=== PATIENT | female | born 1955 | race Caucasian/White ===

== ENCOUNTER → 2018-02-05 | Outpatient (CLI) | payer BC ==
--- NOTE | 2018-02-05 16:24 | US ---
EXAMINATION TYPE: US abdomen complete DATE OF EXAM: 02/05/2018 COMPARISON: NONE CLINICAL HISTORY: R10.9 Unspecified Abdominal Pain. Pt states generalized ABD pain x 3 weeks/ GB walter le 40+ yrs ago EXAM MEASUREMENTS: Liver Length: 13.9 cm CBD: 1.2 cm Spleen: 9.2 cm Right Kidney: 11.0 x 4.7 x 4.1 cm Left Kidney: 10.2 x 5.4 x 5.2 cm Pancreas: wnl, tail obscured by overlying bowel gas Liver: wnl Gallbladder: Surgically absent Evidence for sonographic Medel's sign: No CBD: dilated for post lauren Spleen: wnl Right Kidney: wnl, lower pole gassed out Left Kidney: wnl, lower pole gassed out Upper IVC: wnl Abd Aorta: wnl IMPRESSION: 1. Slight prominence of the common bile duct at 1.2 cm. Normal 0 cm in a postcholecystectomy patient.
== END ==
LOC: RADUSWWP 07:16
PROVIDERS: ATTEND Family Medicine
DX: R10.9 Unspecified abdominal pain (principal); R94.4 Abnormal results of kidney function studies
CPT/HCPCS: 36415; 76700; 82565; 84520

== ENCOUNTER → 2020-02-14 | Outpatient (CLI) | payer MEDICARE ==
--- NOTE | 2020-02-15 19:05 | ECHOF ---
Referral Reason:R07.9 chest pain MEASUREMENTS -------- HEIGHT: 170.2 cm WEIGHT: 101.2 kg BP: 130/80 RVIDd: 3.1 cm (< 3.3) IVSd: 1.1 cm (0.6 - 1.1) LVIDd: 4.3 cm (3.9 - 5.3) LVPWd: 1.2 cm (0.6 - 1.1) IVSs: 1.9 cm LVIDs: 3.1 cm LVPWs: 2.0 cm LA Diam: 4.1 cm (2.7 - 3.8) LAESV Index (A-L): 25.20 ml/m Ao Diam: 3.7 cm (2.0 - 3.7) AV Cusp: 2.7 cm (1.5 - 2.6) MV EXCURSION: 14.230 mm (> 18.000) MV EF SLOPE: 46 mm/s (70 - 150) EPSS: 0.8 cm MV E Ja: 0.50 m/s MV DecT: 407 ms MV A Ja: 0.59 m/s MV E/A Ratio: 0.84 RAP: 5.00 mmHg RVSP: 25.10 mmHg FINDINGS -------- Sinus rhythm. This was a technically good study. The left ventricular size is normal. There is borderline concentric left ventricular hypertrophy. Overall left ventricular systolic function is normal with, an EF between 60 - 65 %. The right ventricle is normal in size. Normal LA size by volume 22+/-6 ml/m2. The right atrium is normal in size. Aneurysmal Interatrial septum. Aortic valve is trileaflet and is mildly thickened. The mitral valve is normal. Mild tricuspid regurgitation present. Right ventricular systolic pressure is normal at < 35 mmHg. Trace/mild (physiologic) pulmonic regurgitation. The aortic root size is normal. Normal inferior vena cava with normal inspiratory collapse consistent with estimated right atrial pre ssure of 5 mmHg. There is no pericardial effusion. CONCLUSIONS -------- 1. The left ventricular size is normal. 2. There is borderline concentric left ventricular hypertrophy. 3. Overall left ventricular systolic function is normal with, an EF between 60 - 65 %. 4. Aneurysmal Interatrial septum. 5. Aortic valve is trileaflet and is mildly thickened. 6. Mild tricuspid regurgitation present. 7. Trace/mild (physiologic) pulmonic regurgitation. 8. There is no pericardial effusion. RECORDS TECHNICIAN: Adilene Cuellar RDCS
== END | disposition home or self-care (01) ==
LOC: RADECHMAIN 14:33
PROVIDERS: ATTEND Family Medicine
DX: I25.3 Aneurysm of heart (principal); I08.2 Rheumatic disorders of both aortic and tricuspid valves; I37.1 Nonrheumatic pulmonary valve insufficiency
CPT/HCPCS: 93306

== ENCOUNTER → 2021-01-29 | Outpatient (CLI) | payer MEDICARE ==
--- NOTE | 2021-02-11 10:56 | MM ---
Reason for exam: screening (asymptomatic). Last mammogram was performed 4 years and 9 months ago. History: Patient is postmenopausal and has history of high-risk lesion on a previous biopsy at age 59. Benign MG pre op needle loc RT of the right breast, February 21, 2015. High risk US biopsy breast VAD RT of the right breast, February 09, 2015. Took hormonal contraceptives for 10 years. Took estrogen for 4 years. Physical Findings: A clinical breast exam by your physician is recommended on an annual basis and results should be correlated with mammographic findings. MG 3D Screening Mammo W/Cad Bilateral CC and MLO view(s) were taken. Prior study comparison: September 22, 2019, mammogram, performed at [place]. August 25, 2018, mammogram, performed at [place]. May 07, 2016, bilateral MG diagnostic mammo w CAD [facility]. October 12, 2015, right breast MG diagnostic mammo RT w CAD. February 09, 2015, right breast MG diagnostic mammo RT wo CAD. The breast tissue is heterogeneously dense. This may lower the sensitivity of mammography. No significant changes when compared with prior studies. ASSESSMENT: Benign, BI-RAD 2 RECOMMENDATION: Routine screening mammogram of both breasts in 1 year.
== END | disposition home or self-care (01) ==
LOC: RADMAMWWP 09:20
PROVIDERS: ATTEND Family Medicine
DX: Z12.31 Encounter for screening mammogram for malignant neoplasm of breast (principal); Z78.0 Asymptomatic menopausal state
CPT/HCPCS: 77063; 77067

== ENCOUNTER → 2022-02-20 | Outpatient (CLI) | payer MEDICARE ==
--- NOTE | 2022-02-21 11:34 | MM ---
Reason for Exam: Screening (asymptomatic). Last mammogram was performed 1 year(s) and 1 month(s) ago. Patient History: Menarche at age 12. First Full-Term at age 16. Right ovary removed at age 44. Hysterectomy at age 44. Postmenopausal. Patient used Estrogen for 4 years. Patient used Hormonal Contraceptives for 10 years. 02/21/2015, Benign Core Biopsy on the right side. 02/09/2015, High risk Core Biopsy on the right side. Risk Values: Liza 5 year model risk: 1.7%. NCI Lifetime model risk: 5.5%. Prior Study Comparison: 08/25/2018 Screening Mammogram, [place]. 09/22/2019 Screening Mammogram, [place]. 01/29/2021 Bilateral Screening Mammogram, [facility]. Tissue Density: There are scattered fibroglandular densities. Findings: Analyzed By CAD. There is no suspicious group of microcalcifications or new suspicious mass in either breast. Overall Assessment: Negative, BI-RAD 1 Management: Screening Mammogram of both breasts in 1 year. 1. Patient should continue monthly self breast exams. 2. A clinical breast exam by your physician is recommended on an annual basis. 3. This exam should not preclude additional follow-up of suspicious palpable abnormalities. Electronically signed and approved by: Yenny Carroll M.D. Radiologist
== END | disposition home or self-care (01) ==
LOC: RADMAMWWP 13:55
PROVIDERS: ATTEND Family Medicine
DX: Z12.31 Encounter for screening mammogram for malignant neoplasm of breast (principal); Z78.0 Asymptomatic menopausal state; Z98.890 Other specified postprocedural states
CPT/HCPCS: 77063; 77067

== ENCOUNTER → 2022-09-29 | Outpatient (CLI) | payer MEDICARE ==
--- NOTE | 2022-09-29 07:46 | MR ---
EXAMINATION TYPE: MR shoulder RT wo con DATE OF EXAM: 09/29/2022 COMPARISON: None. HISTORY: Rt shoulder pain TECHNIQUE: Multiplanar, multisequence imaging of the right shoulder is performed without contrast. FINDINGS: Rotator Cuff: Increased signal distal supraspinatus and infraspinatus tendons. Mild generalized muscu lar atrophy Acromioclavicular Joint: Mild to moderate spurring and capsular hypertrophy. Loss of underlying fat p antony. Glenohumeral Joint: Severe narrowing with extensive subchondral cystic change. Bone on bone appearanc e is seen. Prominent small bony projection inferior medial humeral head. Heterogeneous diminished T1 and increased T2 signal. Large nonsimple joint effusion extending superiorly and over subdeltoid rashawn on. Labrum: The labrum appears grossly intact given limitation of non-arthrogram study. Biceps Tendon: The long head of biceps is in normal location within bicipital groove. Bone marrow signal: Increased signal superior labrum likely reflecting degenerative tearing. Other: No additional significant abnormality is appreciated. IMPRESSION: 1. Advanced glenohumeral joint arthropathy. Moderate to large nonsimple joint effusion with septation extending superiorly and laterally. Suspect underlying synovitis. Tendinosis of the rotator cuff ten dons. No focal tear.
== END | disposition home or self-care (01) ==
LOC: RADMRIMAIN 06:52
PROVIDERS: ATTEND Orthopaedic Surgery Sports Medicine
DX: M75.121 Complete rotator cuff tear or rupture of right shoulder, not specified as traumatic (principal); M67.813 Other specified disorders of tendon, right shoulder; M19.011 Primary osteoarthritis, right shoulder; M25.411 Effusion, right shoulder

== ENCOUNTER → 2023-05-13 | Outpatient (CLI) | payer MEDICARE ==
--- NOTE | 2023-05-15 17:17 | MM ---
Reason for Exam: Screening (asymptomatic). Last mammogram was performed 1 year(s) and 3 month(s) ago. Patient History: Menarche at age 12. First Full-Term at age 16. Right ovary removed at age 44. Hysterectomy at age 44. Postmenopausal. Patient used Estrogen for 4 years. Patient used Hormonal Contraceptives for 10 years. 02/21/2015, Benign Core Biopsy on the right side. 02/09/2015, High risk Core Biopsy on the right side. Risk Values: Liza 5 year model risk: 1.7%. NCI Lifetime model risk: 5.0%. Prior Study Comparison: 09/22/2019 Screening Mammogram, [place]. 01/29/2021 Bilateral Screening Mammogram, [facility]. 02/20/2022 Bilateral MG 3D screening mammo w/cad, [facility]. Tissue Density: There are scattered fibroglandular densities. Findings: Analyzed By CAD. Pattern appears symmetrical and stable. Benign calcification in the left breast. No suspicious groups of microcalcifications, spiculated or lobular masses, architectural distortion or other secondary signs of malignancy are mammographically apparent. Overall Assessment: Benign, BI-RAD 2 Management: Screening Mammogram of both breasts in 1 year. A negative mammogram report should not preclude additional follow up of suspicious palpable abnormalities. Patient should continue monthly self breast exam. A clinical breast exam by your physician is recommended on an annual basis and results should be correlated with mammographic findings. Electronically signed and approved by: Danny Traore D.O. Radiologis
== END | disposition home or self-care (01) ==
LOC: RADMAMWWP 14:34
PROVIDERS: ATTEND Family Medicine
DX: Z12.31 Encounter for screening mammogram for malignant neoplasm of breast (principal); Z78.0 Asymptomatic menopausal state
CPT/HCPCS: 77063; 77067

== ENCOUNTER → 2024-10-31 | Outpatient (CLI) | payer MEDICARE ==
--- NOTE | 2024-11-01 07:44 | MM ---
Reason for Exam: Screening (asymptomatic). Last mammogram was performed 1 year(s) and 5 month(s) ago. Patient History: Menarche at age 12. First Full-Term at age 16. Right ovary removed at age 44. Hysterectomy at age 44. Postmenopausal. Patient used Hormonal Contraceptives for 10 years. 02/21/2015, Benign Core Biopsy on the right side. 02/09/2015, High risk Core Biopsy on the right side. Risk Values: Liza 5 year model risk: 1.7%. NCI Lifetime model risk: 4.8%. Prior Study Comparison: 01/29/2021 Bilateral Screening Mammogram, [facility]. 02/20/2022 Bilateral MG 3D screening mammo w/cad, [facility]. 05/13/2023 Bilateral MG 3D screening mammo w/cad, [facility]. Tissue Density: The breasts are heterogeneously dense, which may obscure small masses. Findings: Analyzed By CAD. Right breast: There is no suspicious group of microcalcifications or new suspicious mass. Left breast: There is no suspicious group of microcalcifications or new suspicious mass. Overall Assessment: Negative, BI-RAD 1 Management: Screening Mammogram of both breasts in [address] [facility] will attempt to contact patient to return for supplemental views and ultrasound if indicated. Patient should continue monthly self-breast exams. A clinical breast exam by your physician is recommended on an annual basis. This exam should not preclude additional follow-up of suspicious palpable abnormalities. Note on Liza scores and lifetime risk: 1. A Liza score greater than 3% is considered moderate risk. If this is the case, consider specialist referral to assess eligibility for a risk reducing agent. 2. If overall lifetime risk for the development of breast cancer is 20% or higher, the patient may qualify for future screening with alternating mammogram and breast MRI. [facility], , 11/01/2024 7:41 AM. Electronically signed and approved by: Clay Estrada DO
== END | disposition home or self-care (01) ==
LOC: RADMAMWWP 15:38
PROVIDERS: ATTEND Family Medicine
DX: Z12.31 Encounter for screening mammogram for malignant neoplasm of breast (principal); R92.333 Mammographic heterogeneous density, bilateral breasts; Z78.0 Asymptomatic menopausal state; Z92.0 Personal history of contraception
CPT/HCPCS: 77063; 77067